=== PATIENT | male | born 2000 | race Caucasian/White ===

== ENCOUNTER 2023-02-25 20:30 | Emergency (ER) | payer MEDICAID ==
[~2023-02-25] VITALS: Ht 172.7 cm; Wt 61.7 kg
--- NOTE | 2023-02-25 21:07 | Diagnostic Imaging Report ---
INDICATION: Pain status post injury. Deformity. COMPARISON: None. FINDINGS: Multiple radiographic views of the left elbow were obtained and show posterior dislocation of the radius and ulna in respect to the distal humerus. Multiple extraosseous calcifications are also noted about the joint. These could be on the basis of small fracture fragments, although some of them appear well circumscribed and may be nonacute in nature. Joint effusion is noted. No unexpected radiopaque foreign body is seen. IMPRESSION: Left elbow dislocation. Dictated by: Dictated on workstation # [id number]
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
[2023-02-25] MEDS ORDERED: fentaNYL INJ 100 MCG/2 ML AMP IVP ONE ×2 (21:30→21:45)
[2023-02-25] MEDS ORDERED: ETOMIDATE IV SOLN 20 MG/10 ML VIAL IV ONE (21:45)
[2023-02-25 22:32] VITALS: BP 119/49
--- NOTE | 2023-02-26 08:13 | Diagnostic Imaging Report ---
INDICATION: Elbow dislocation, postreduction TECHNIQUE: 3 views of the left elbow CORRELATION STUDY: 02/25/2023 FINDINGS: There has been satisfactory reduction of previously noted left elbow dislocation. Alignment now anatomic. There is question of lucency of the radial head suspect for nondisplaced radial head fracture. Additionally, given the mechanism while not visualized suspect for probable coronoid process fracture. Rather prominent generalized soft tissue edema including joint effusion. IMPRESSION: 1. Satisfactory reduction of previously noted left elbow dislocation. Alignment now anatomic. 2. Question nondisplaced radial head fracture. 2. Additionally, given mechanism, concern for likely underlying nonvisualized coronoid process fracture. If indicated, CT imaging would be recommended. Dictated by: Dictated on workstation # [id number]
== END 2023-02-25 22:32 | disposition home or self-care (01) ==
LOC: EDUNIT# 20:30 → ER FS 20:31
DX: S53.105A Unspecified dislocation of left ulnohumeral joint, initial encounter (principal); Z87.828 Personal history of other (healed) physical injury and trauma; Z28.310 Unvaccinated for COVID-19; V80.018A Animal-rider injured by fall from or being thrown from other animal in noncollision accident, initial encounter
CPT/HCPCS: 73070; 73080; 93041